=== PATIENT | female | born 1985 | race Caucasian/White ===

== ENCOUNTER 2020-08-29 13:27 | Emergency (ER) | payer OTHER, SELFPAY ==
--- NOTE | ~2020-08-29 | CT_ITS ---
EXAMINATION: CT abdomen pelvis wo con DATE: 08/29/2020 15:09 INDICATION: Abdominal pain TECHNIQUE: Computed tomography (CT) of the abdomen and pelvis was performed without intravenous contr ast. Automated exposure control and iterative reconstruction technique were employed. The dose-length product was 1561.54 mGy-cm. COMPARISON: None FINDINGS: Lung bases are clear. Heart size is normal. No pericardial or pleural effusion. Focal hepatic steatos is at the ligamentum teres. Cholecystectomy clips the gallbladder fossa. Spleen, pancreas, bilateral adrenal glands and kidneys are normal. Small bowel and appendix are normal. Mild colonic diverticulos is with inflammatory stranding surrounding a diverticulum at the junction of the descending and sigmo id colon consistent with diverticulitis. Trace amount of likely reactive ascites in the deep pelvis. No abscess or free intraperineal gas. Bladder, uterus and bilateral adnexa are unremarkable. No patho logically enlarged abdominal or pelvic lymphadenopathy. Mild lumbar spondylosis. IMPRESSION: 1. Radiographically uncomplicated diverticulitis. Reviewed, dictated and finalized at location A.
[2020-08-29 14:00] VITALS: BP 131/89; PULSE 107; RESP 20; TEMP 36.9; O2SAT 95
[2020-08-29 14:23] LABS: Add Urine Microscopic? YES; Appearance Urine Clear (Clear); Bilirubin Urine 1+ (Negative); Blood Urine Negative (Negative); Color Urine Yellow (Yellow); Glucose Urine UA Negative (Negative); Ketones Urine Trace (Negative); Leukocyte Esterase Ur Negative LEU/UL (Negative); Nitrate Urine Negative (Negative); Protein Urine Trace (Negative); Specific Grav Ur >= 1.030 (1.010-1.020); Urobilinogen Urine 0.2 mg/dL (0.2-1.0); pH Urine 5.5 (5.0-8.0)
[2020-08-29] MEDS: KETOROLAC (*BKC) 60 MG/2 ML VIAL IM (14:26)
[2020-08-29 14:47] LABS: Basophils Absolute Auto 0.03 K/mm3 (0.00-0.10); Basophils Percent Auto 0.2 % (0.0-1.0); Eosinophils Absolute Auto 0.02 K/mm3 (0.02-0.50); Eosinophils Percent Auto 0.2 % (1.0-6.0); Hematocrit 38.9 % (35.0-49.0); Hemoglobin 12.5 g/dL (12.0-15.0); Immature Granulocyte Absolute 0.03 K/mm3 (0.00-0.00); Immature Granulocyte Percent A 0.2 % (0.0-0.0); Lymphocytes Absolute Auto 1.64 K/mm3 (1.10-4.50); Lymphocytes Percent Auto 13.1 % (18.0-42.0); Mean Corpuscular HGB Conc 32.1 g/dL (32.0-36.0); Mean Corpuscular Volume 90.3 fL (78.0-102.0); Monocytes Absolute Auto 0.75 K/mm3 (0.10-0.90); Neutrophils Percent Auto 80.3 % (50.0-70.0); Platelet Count Result 325 K/mm3 (150-420); Red Blood Count 4.31 M/mm3 (4.20-5.40); Red Cell Distribution Width 13.2 % (11.6-14.4); White Blood Count 12.5 K/mm3 (4.8-10.8)
[2020-08-29 14:49] LABS: Pregnancy On Board Control Positive; Urine Pregnancy Test Negative
[2020-08-29 14:52] LABS: RBC Urine 0-2 /hpf (0-2)
[2020-08-29 14:55] LABS: Bacteria Urine Trace /hpf; Mucus Urine Heavy /lpf; Squamous Epithelial Cell Urine Moderate /hpf (Few)
[2020-08-29 15:06] LABS: Alanine Aminotransferase 34 U/L (14-59); Albumin Level 4.1 g/dL (3.4-5.0); Alkaline Phosphatase 94 U/L (46-116); Anion Gap 10 mmol/L (8-16); Aspartate Amino Transferase 18 U/L (15-37); Bilirubin,Total 1.5 mg/dL (0.00-1.00); Blood Urea Nitrogen 13 mg/dL (7-18); Calcium 9.4 mg/dL (8.5-10.1); Carbon Dioxide 25 mmol/L (21-32); Chloride 102 mmol/L (98-108); Estimated Glomerular Filt Rate > 60; Glucose 104 mg/dL (70-99); Osmolality Calculated 284 mOsm/kg (285-295); Potassium 4.2 mmol/L (3.5-5.1); Sodium 137 mmol/L (136-145)
--- NOTE | 2020-08-29 15:39 | ED.GENADULT ---
HPI - General Adult General Chief complaint: Abdominal Pain Stated complaint: LLQ abd pain Source: patient Mode of arrival: ambulatory Limitations: no limitations History of Present Illness HPI narrative: this is a 35-year-old female presents with abdominal pain left lower quadrant with some nausea pain is about 4 or 5/10 with no diarrhea constipation no chest pain no shortness of breath no fever or chills. Patient's pain started 2 to 3 days ago in his got worse over last 24 hours. Onset (ago): day(s) Location: abdomen Radiation: non-radiation Severity: mild Severity scale (1-10): 4 Quality: aching Pain Consistency: intermittent Relieving factors: none Exacerbating factors: none Associated symptoms: denies other symptoms Related Data Allergies Allergy/AdvReac Type Severity Reaction Status Date / Time Penicillins Allergy Hives Verified 08/29/20 13:59 Review of Systems Review of Systems: All systems reviewed & are unremarkable except as noted in HPI and below PMFSH Past Medical History Medical History Morbidly obese Exam Const: General: no acute distress Orientation/consciousness: patient oriented x3 HENMT: Head: normal to inspection Eyes: Conjunctivae: conjunctivae normal Pupils: Equal, round and reactive pupils present Neck: Neck: normal visual inspection, no lymphadenopathy and no meningeal signs Chest: Chest palpation & inspection: normal inspection of the chest Resp: Effort & Inspection: normal respiratory effort Auscultation: clear to auscultation bilaterally Cardio: Rate: regular rate Rhythm: regular rhythm GI: GI Palp: Yes Soft to palpation and Yes Tenderness to palpation present (GI) Percussion: Yes normal to percussion : General: Yes no CVA tenderness Urinary Catheter: Urinary Catheter: patent and draining Back/Spine/Pelvis: Back: no CVA tenderness Skin: General skin exam: normal color Rashes: no rashes Extrem: General: normal to inspection Psych: Appearance: grossly normal Mental Status: mental status grossly normal Affect: normal affect Course Course Emergency Course: patient's pain has improved, explained the CT scan findings and will send p.o. antibiotics to her pharmacy. Vital Signs Vital signs: Vital Signs Temperature 36.9 C 08/29/20 14:00 Pulse Rate 107 H 08/29/20 14:00 Respiratory Rate 20 08/29/20 14:00 Blood Pressure 131/89 08/29/20 14:00 Pulse Oximetry 95 08/29/20 14:00 Temperature 36.9 C 08/29/20 14:00 Pulse Rate 107 H 08/29/20 14:00 Respiratory Rate 20 08/29/20 14:00 Blood Pressure 131/89 08/29/20 14:00 Pulse Oximetry 95 08/29/20 14:00 Medical Decision Making Vital Signs Vital Signs: Vital Signs Temperature 36.9 C 08/29/20 14:00 Pulse Rate 107 H 08/29/20 14:00 Respiratory Rate 20 08/29/20 14:00 Blood Pressure 131/89 08/29/20 14:00 Pulse Oximetry 95 08/29/20 14:00 Temperature 36.9 C 08/29/20 14:00 Pulse Rate 107 H 08/29/20 14:00 Respiratory Rate 20 08/29/20 14:00 Blood Pressure 131/89 08/29/20 14:00 Pulse Oximetry 95 08/29/20 14:00 Lab Data Result diagrams: 08/29/20 14:38 08/29/20 14:38 Labs: Lab Results 08/29/20 08/29/20 08/29/20 Range/Units 14:13 14:33 14:38 WBC 12.5 H (4.8-10.8) K/mm3 RBC 4.31 (4.20-5.40) M/mm3 Hgb 12.5 (12.0-15.0) g/dL Hct 38.9 (35.0-49.0) % MCV 90.3 (78.0-102.0) fL MCH 29.0 (27.0-31.0) pg MCHC 32.1 (32.0-36.0) g/dL RDW 13.2 (11.6-14.4) % Plt Count 325 (150-420) K/mm3 MPV 10.0 (9.2-11.8) fl Immature Gran % (Auto) 0.2 H (0.0-0.0) % Neut % (Auto) 80.3 H (50.0-70.0) % Lymph % (Auto) 13.1 L (18.0-42.0) % [place] % (Auto) 6.0 (2.0-11.0) % Eos % (Auto) 0.2 L (1.0-6.0) % Baso % (Auto) 0.2 (0.0-1.0) % Lymph # (Auto) 1.64 (1.10-4.50) K/mm3 [place] # (Auto) 0.75 (0.10-0.90) K/mm3 Eos #
[2020-08-29 15:59] VITALS: BP 125/76
== END 2020-08-29 16:00 | disposition home or self-care (01) ==
PROVIDERS: Emergency Provider Emergency Medicine; PCP Family Medicine
DX: K57.92 Diverticulitis of intestine, part unspecified, without perforation or abscess without bleeding (principal)
CPT/HCPCS: 36415; 74176; 80053; 81001; 81025; 85025; 96372; 99283; 99284; J1885